=== PATIENT | female | born 1960 | race Caucasian/White ===

== ENCOUNTER → 2017-07-23 | Outpatient (CLI) | payer MEDICARE, OTHER ==
[2016-08-21 08:50] VITALS: BP 116/65
[~2017-07-23] MED LIST: ALPR0.5T6 PO; ATEN25TA PO; DIGO125T PO; DIPH25CA58 PO; DULO30CA2 PO; FENT1PAT17 TD; NITR100C62 PO; ONDA4TAB10 SL; OXYC1TAB7 PO; PROM12.56 PO; TIZA4TAB PO; ZOLP10TA4 PO
--- NOTE | 2017-07-23 13:30 | KCIC ---
EXAM: Dual energy x-ray absorptiometry (DEXA). HISTORY: Osteoporosis. COMPARISON: None available. TECHNIQUE: Dual energy x-ray absorptiometry of the lumbar spine and left hip was performed. Calculation of bone mineral density based on standard deviations above or below the expected young adult normal value (T-score) was completed. FINDINGS: The average bone mineral density in the 1st through 4th lumbar vertebrae is 0.841 g/cmxcm, corresponding with a T-score of -1.9. The average total bone mineral density in the left hip is 0.771 g/cmxcm, corresponding with a T-score of -1.4. IMPRESSION: Findings are compatible with osteopenia. Note: Definitions established by the World Health Organization: 1. Normal: T-score is -1.0 or above. 2. Osteopenia: T-score is between -1.0 and -2.5 . 3. Osteoporosis: T-score is -2.5 or below. Electronically signed by: Susan Padilla MD (07/23/2017 1:26 PM) [place] [id number]
--- NOTE | 2017-07-23 14:57 | KCIC ---
Bilateral digital screening mammograms: Reason for examination: Routine screening. Comparison is made to previous study dated 01/12/2014. The skin and nipples show no abnormalities. No abnormal axillary lymph nodes are seen. The breast parenchyma shows scattered fibroglandular density. (Breast density: Category B.) There are no dominant masses, suspicious calcifications or architectural distortions. Impression: No evidence of malignancy. Recommend routine screening. BI-RADS Category 1: Negative. "Our facility is accredited by the [employer] Mammography Program." This patient's information has been entered into a reminder system for the patient to be notified with the results of her examination and a target date for the next mammogram. Electronically signed by: Machelle Cook MD (07/23/2017 2:54 PM) [facility]
== END | disposition home or self-care (01) ==
LOC: KCIC MAMMO 12:30
PROVIDERS: ATTEND Physician Assistant Surgical
DX: Z12.31 Encounter for screening mammogram for malignant neoplasm of breast (principal); M81.0 Age-related osteoporosis without current pathological fracture; Z13.820 Encounter for screening for osteoporosis
CPT/HCPCS: 77080; G0202; 77067

== ENCOUNTER → 2018-08-05 | Outpatient (CLI) | payer MEDICARE ==
[2018-01-07 11:00] VITALS: BP 101/67
[~2018-08-05] MED LIST changes: +BACL10TA PO; +CETI10TA16 PO; +DIAZEPAM10 MG PO; +DIPH50CA PO; +FLUT16SP NS; +LACT20SO PO; +LEVO100T5 PO; +OMEP40CA5 PO; +OXYB5TAB7 PO; +OXYC-328 PO; +PROM25TA10 PO; +TRAZ-86 PO; +URSO500T8 PO; +VENL75CA PO
--- NOTE | 2018-08-06 14:00 | KCIC ---
3d digital tomography Bilateral History: Routine screening Technique: Bilateral 3d digital tomographic views were obtained with [employer] and reviewed on a [employer] workstation. In addition, CAD - computer aided detection was utilized. Comparison: July 23, 2017. Findings: Breast Tissue Density B : The breast tissue is composed of mixed fatty and fibroglandular tissue. There are no suspicious masses, microcalcifications or areas of architectural distortion. Impression: No suspicious findings. BI-RADS Category 1: Negative. Normal interval followup. The patient will receive a letter with the results in the mail. A mammogram does not have 100% sensitivity and therefore a negative imaging study should not delay further work up of a suspicious abnormality. Patient information is entered into the [facility] reminder system using [employer]) with a target due date for the next screening mammogram. The patient will receive a reminder. "Our facility is accredited by the [employer] Mammography Program." Electronically signed by: Moreno Ojeda III, MD (08/06/2018 1:57 PM) [facility]
== END | disposition home or self-care (01) ==
LOC: KCIC MAMMO 13:20
PROVIDERS: ATTEND Family Medicine
DX: Z12.31 Encounter for screening mammogram for malignant neoplasm of breast (principal)
CPT/HCPCS: 77063; 77067

== ENCOUNTER → 2018-08-30 | Outpatient (CLI) | payer MEDICARE ==
[2018-01-07 11:00] VITALS: BP 101/67
--- NOTE | 2018-08-30 13:46 | RAD ---
CT CHEST WO CONTRAST Indication: COUGH, X1WEEK, NO PRIORS Exposure: One or more of the following individualized dose reduction techniques were utilized for this examination: 1. Automated exposure control 2. Adjustment of the mA and/or kV according to patient size 3. Use of iterative reconstruction technique. Comparison: None are available. Contrast:. None FINDINGS: Vascular evaluation limited without intravenous contrast. No evidence of aortic aneurysm. Partially seen thyroid unremarkable. No significant lymph node enlargement. No pericardial effusion. Esophagus grossly unremarkable. No significant pleural effusion. There is some linear density in the left lingula, somewhat nodular on the axial images. This nodular aspect is fairly flat when viewed in the sagittal plane, measures 7 mm x 2 mm x 6 mm. There are several additional scattered small nodules in the lungs, measuring 2 mm or less. Mild groundglass density in the dependent aspect of the right lower lobe, likely atelectasis. No dense airspace consolidation. The trachea and central airways are patent. Degenerative spondylosis. Limited scans through the upper abdomen demonstrate a lesion arising from the upper pole the left kidney, measuring 10 mm, indeterminate. IMPRESSION: 1. Small flat nodule in the lingula of the left lung, measuring 7 mm long axis. Multiple additional tiny nodules measuring 2 mm or less. As per Fleischner guidelines, recommend follow-up CT chest in 6-12 months. 2. Mild hazy groundglass density in the right lower lobe, may just represent atelectasis. 3. Small indeterminate left renal nodule, may represent a cyst but further characterization could be obtained with ultrasound. Electronically signed by: Douglas Rincon MD (08/30/2018 1:43 PM) [facility]
== END | disposition home or self-care (01) ==
LOC: CT 14:03
PROVIDERS: ATTEND Internal Medicine Pulmonary Disease
DX: M47.894 Other spondylosis, thoracic region (principal); R91.1 Solitary pulmonary nodule
CPT/HCPCS: 71250

== ENCOUNTER → 2018-11-18 | Outpatient (CLI) | payer MEDICARE ==
[2018-01-07 11:00] VITALS: BP 101/67
[~2018-11-18] MED LIST changes: -OXYC-328 PO; +OXYC1TAB22 PO
[2018-11-18 16:15] LABS: BASO % 1 % (0-3); EOS # 0.1 x10^3/uL (0.0-0.7); EOS % 2 % (0-3); HEMATOCRIT 42.4 % (36.0-47.0); LYMPH # 2.1 x10^3/uL (1.0-4.8); LYMPH % 34 % (24-48); MEAN CORPUSCULAR HEMOGLOBIN 30 pg (25-35); MEAN CORPUSCULAR HGB CONC 33 g/dL (31-37); MEAN CORPUSCULAR VOLUME 90 fL (79-100); MONO # 0.4 x10^3/uL (0.0-1.1); MONO % 7 % (0-9); NEUT # 3.4 x10^3uL (1.8-7.7); NEUT % 56 % (31-73); PLATELET COUNT 186 x10^3/uL (140-400); RED BLOOD COUNT 4.71 x10^6/uL (3.50-5.40); RED CELL DISTRIBUTION WIDTH 14.1 % (11.5-14.5); WHITE BLOOD COUNT 6.1 x10^3/uL (4.0-11.0)
[2018-11-18 16:24] LABS: PROTHROMBIN TIME PATIENT 14.1 SEC (11.7-14.0)
[2018-11-18 16:48] LABS: ALBUMIN 3.8 g/dL (3.4-5.0); CALCIUM 9.7 mg/dL (8.5-10.1); GFR 56.9; POTASSIUM 4.5 mmol/L (3.5-5.1); TOTAL PROTEIN 7.6 g/dL (6.4-8.2)
== END | disposition home or self-care (01) ==
LOC: LAB 15:41
PROVIDERS: ATTEND Internal Medicine
DX: K74.69 Other cirrhosis of liver (principal)
CPT/HCPCS: 36415; 80053; 82105; 85025; 85610

== ENCOUNTER → 2019-07-01 | Outpatient (CLI) | payer MEDICARE ==
[2018-01-07 11:00] VITALS: BP 101/67
[~2019-07-01] MED LIST changes: -PROM12.56 PO; +PROM12.58 PO; -TIZA4TAB PO; +TIZA4TAB2 PO; -URSO500T8 PO; +URSO500T9 PO
--- NOTE | 2019-07-01 17:20 | RAD ---
EXAM: CT Chest without IV contrast CLINICAL HISTORY: Lung nodules, cough COMPARISON: 08/30/2018 TECHNIQUE: CT of the chest without intravenous contrast. Axial, coronal and sagittal reformatted images were generated. ---PQRS compliance statement - One or more of the following individualized dose reduction techniques were utilized for this study: 1. Automated exposure control 2. Adjustment of the mA and/or kV according to patient size 3. Use of iterative reconstruction technique--- FINDINGS: Lack of intravenous contrast limits evaluation of solid organs, vasculature, and lymph nodes. Chest: Pacer leads are seen within the heart. The heart is not enlarged. No pericardial effusion. No pleural effusion or pneumothorax. 7 mm nodular density in the lingula is essentially stable (series 8 image 148). A few 2-3 mm lung nodules bilaterally are essentially stable. Visualized Upper abdomen: Cholecystectomy clips are seen. Left upper pole renal cystic lesion is seen. Bones: Osseous structures are grossly unremarkable. IMPRESSION: 1. 7 mm nodular density in the lingula is essentially stable. Consider 12 month follow-up to ensure two-year stability. Additional smaller 2-3 mm lung nodules are also grossly stable. Electronically signed by: Damir Arcos MD (07/01/2019 5:18 PM) [facility] [place]
== END | disposition home or self-care (01) ==
LOC: CT 12:57
PROVIDERS: ATTEND Internal Medicine Pulmonary Disease
DX: R91.8 Other nonspecific abnormal finding of lung field (principal); N28.89 Other specified disorders of kidney and ureter; Z90.49 Acquired absence of other specified parts of digestive tract
CPT/HCPCS: 71250

== ENCOUNTER → 2019-09-02 | Outpatient (CLI) | payer MEDICARE ==
[2018-01-07 11:00] VITALS: BP 101/67
[~2019-09-02] MED LIST changes: -DIGO125T PO; +DIGO125T3 PO; +OMEP40CA45 PO; -OMEP40CA5 PO; +OXYB5TAB10 PO; -OXYB5TAB7 PO; +REGADENOSON 0.4 MG/5 ML DISP.SYRIN. IV ONE
--- NOTE | 2019-09-02 13:18 | RAD ---
MR#: [id number] Date of Study: 09/02/2019 Ordering Physician: RNONY BLOOM Referring Physician: CIERRA ISRAEL Tech: EDITA White APPROVED REPORT Test Type: Pharmacological Stress Nurse/Tech: Becca Breen R.N. Test Indications: pre-op back surgery Cardiac History: htn, pacemaker Medications: Zocor Medical History: See Electronic Medical Record Resting EC% a paced Resting Heart Rate: 81 bpm Resting Blood Pressure: 130/82mmHg Pretest Chest Pain: No chest pain Nurse/Tech Notes S1S2, lungs CTA Consent: The procedure was explained to the patient in lay terms. Informed consent was witnessed. Sai eout was entered into [email or web address]. History and Stress Test performed by RT Chris (R) (N) Pharm. Details Pharmacologic stress testing was performed using 0.4mg per 5ml of regadenoson given intravenously ove r 7-10 seconds. Stress Symptoms SOA POST EXERCISE Reason for Termination: Infusion complete Max HR: 88 bpm Max Blood Pressure: 149/68mmHg Blood Pressure response to exercise: Normal blood pressure response during stress. Heart Rate response to exercise: wnl Chest Pain: No. Arrhythmia: No. ST Change: No. INTERPRETATION Stress EKG Conclusion: Atrial paced rhythm at baseline. No significant EKG changes to suggest ischemi a with vasodilator infusion. Imaging Protocol IMAGE PROTOCOL: Rest Tc-99m/stress Tc-99m 1 day Rest: Stress: Viability: Radiopharm.Tc99m SwbfiaccgDp24k Sestamibi Dose10.3mCi 33mCi Duration 15min. 10min. Img Date 09/02/2019 09/02/2019 Inj-Img Mmwz66wea. 60min. Rest Admin Site:IV - Right WristAdministrator:RT Chris (R)(N) Stress Admin Site: IV - Right WristAdministrator: NORA Ayers, ARRT (R)(N) STRESS DATA End Diast. Vol.64.0mlAv. Heart Rate72.0bpm End Syst. Vol.12.0mlCO Index BSA0.0L/min Myocardial Wdbo585.0gEject. Auafxsqv27.0% Stress Rates Pk. Fill Rate3.54EDV/secLVtime Pk. Fill 225.85msec Pk. Empty Rate4.48ESV/secLVtime Pk. Vpqrw154.10msec /3 Pk. Fill1.57EDV/sec Stress Scores Regional WT1.00Summed WT1.00 Regional WM0.00Summed WM0.00 The rest and stress images show normal perfusion, normal contraction and thickening. LV Perf. Quant 17 Seg. SSS0.00 17 Seg. SRS0.00 17 Seg. SDS0.00 Stress Defect Extent (% LAD)0.00Rest Defect Extent (% LAD)0.00Rev. Defect Extent (% LAD)0.00 Stress Defect Extent (% LCX) 0.00Rest Defect Extent (% LCX)0.00Rev. Defect Extent (% LCX)0.00 Stress Defect Extent (% RCA)0.00Rest Defect Extent (% RCA)0.00Rev. Defect Extent (% RCA)0.00 Stress Defect Extent (% CÉSAR)0.00Rest Defect Extent (% CÉSAR)0.00Rev. Defect Extent (% CÉSAR)0.00 Other Information Quality:Good Risk Assessment: Low Risk Conclusion 1. No evidence of EKG changes with stress testing. 2. Normal perfusion at stress/rest. 3. Low risk study. 4. EF > 60%. Signed by : Jose Roberto De La O, Electronically Approved : 09/02/2019 13:17:58
== END | disposition home or self-care (01) ==
LOC: NM 09:39
PROVIDERS: ATTEND Internal Medicine Cardiovascular Disease
DX: Z01.818 Encounter for other preprocedural examination (principal); I49.5 Sick sinus syndrome; I10 Essential (primary) hypertension; Z95.0 Presence of cardiac pacemaker; Z87.891 Personal history of nicotine dependence
CPT/HCPCS: 78452; 93017; A9500; J2785

== ENCOUNTER → 2019-09-03 | Outpatient (CLI) | payer MEDICARE ==
[2018-01-07 11:00] VITALS: BP 101/67
[~2019-09-03] MED LIST changes: +DIGO125T PO; -DIGO125T3 PO; -REGADENOSON 0.4 MG/5 ML DISP.SYRIN. IV ONE
--- NOTE | 2019-09-03 13:17 | CARD ---
MR#: [id number] Date of Study: 09/03/2019 Ordering Physician: RONNY DUENAS, Referring Physician: Lalo ISRAEL: Zhanna Davenport APPROVED REPORT EXAM: Two-dimensional and M-mode echocardiogram with Doppler and color Doppler. Other Information Quality : AverageHR: 89bpm INDICATION Chest Pain 2D DIMENSIONS RVDd3.0 (2.9-3.5cm)Left Atrium(2D)2.7 (1.6-4.0cm) IVSd0.9 (0.7-1.1cm)Aortic Root(2D)2.7 (2.0-3.7cm) LVDd4.4 (3.9-5.9cm)LVOT Diameter2.0 (1.8-2.4cm) PWd0.7 (0.7-1.1cm)LVDs2.8 (2.5-4.0cm) FS (%) 37.0 %SV60.3 ml LVEF(%)67.1 (>50%) Aortic Valve AoV Peak Fernie.130.6cm/sAoV VTI29.7cm AO Peak GR.6.8mmHgLVOT Peak Fernie.105.1cm/s LVOT VTI 23.13cmAO Mean GR.4mmHg JUAN ALBERTO (VMAX)1.51qi8EKQ (VTI)2.38cm2 AI P 1/2 Rsea101me Mitral Valve MV E Vlbjcblp16.6cm/sMV DECEL [id number] MV A Eajcpwte37.1cm/sMV AKP34bz E/A Ratio0.8MVA (PHT)3.71cm2 TDI E/Lateral E'7.2E/Medial E'9.5 Pulmonary Valve PV Peak Itujemwn18.9cm/sPV Peak Grad.2mmHg Tricuspid Valve TR P. Uzlrxbpj930bs/sRAP AVOCRGBK9jsNg TR Peak Gr.83yxWzBQPG72ipXv Pulmonary Vein S1 Ptngyien09.6cm/sD2 Fuejxzvh61.6cm/s PVa qtmpusrh740xdez LEFT VENTRICLE The left ventricle is normal size. There is normal left ventricular wall thickness. The left ventricu lar systolic function is normal. The Ejection Fraction is 60-65%. There is normal LV segmental wall m otion. Transmitral Doppler flow pattern is Grade I-abnormal relaxation pattern. RIGHT VENTRICLE The right ventricle is normal size. The right ventricular systolic function is normal. ATRIA The left atrium size is normal. The right atrium size is normal. The interatrial septum is intact wit h no evidence for an atrial septal defect or patent foramen ovale as noted on 2-D or Doppler imaging. AORTIC VALVE The aortic valve is thickened but opens well. Doppler and Color Flow revealed mild aortic regurgitati on. There is no significant aortic valvular stenosis. MITRAL VALVE The mitral valve is mildly thickened. There is no evidence of mitral valve prolapse. There is no mitr al valve stenosis. Doppler and Color-flow revealed trace to mild mitral regurgitation. TRICUSPID VALVE The tricuspid valve is normal in structure and function. Doppler and Color Flow revealed mild tricusp id regurgitation with an estimated PAP of 19 mmHg. There is no tricuspid valve stenosis. PULMONIC VALVE The pulmonic valve is not well visualized. Doppler and Color Flow revealed trace to mild pulmonic louis vular regurgitation. GREAT VESSELS The aortic root is normal in size. The ascending aorta is normal in size. The IVC is normal in size a nd collapses >50% with inspiration. PERICARDIAL EFFUSION There is no pleural effusion. There is no evidence of significant pericardial effusion. Critical Notification Critical Value: No <Conclusion> The left ventricular systolic function is normal. The Ejection Fraction is 60-65%. There is normal LV segmental wall motion. Transmitral Doppler flow pattern is Grade I-abnormal relaxation pattern. Mild aortic regurgitation. Trace to mild mitral regurgitation. Mild tricuspid regurgitation with an estimated PAP of 19 mmHg. There is no evidence of significant pericardial effusion. Signed by : Ronny Duenas, Electronically Approved : 09/03/2019 13:16:48
== END | disposition home or self-care (01) ==
LOC: ECHO 12:32
PROVIDERS: ATTEND Internal Medicine Cardiovascular Disease
DX: I08.8 Other rheumatic multiple valve diseases (principal)
CPT/HCPCS: 93306

== ENCOUNTER → 2020-09-20 | Outpatient (CLI) | payer MEDICARE ==
[2018-01-07 11:00] VITALS: BP 101/67
[~2020-09-20] MED LIST changes: -DIGO125T PO; +DIGO125T3 PO; +TRAZ-123 PO; -TRAZ-86 PO
--- NOTE | 2020-09-20 16:12 | RAD ---
CT the chest compared to similar exam dated July 01, 2019 for lung nodule. TECHNIQUE AND FINDINGS: Contiguous axial CT images are obtained from the thoracic inlet to the base of diaphragm. Sagittal and coronal reformations are evaluated. No IV contrast was administered. FINDINGS: There is been a prior cholecystectomy. There is no suspicious mediastinal, hilar, or axillary lymphadenopathy. Pacemaker is noted. Heart size within normal limits. Evaluation of the upper abdominal organs is limited by lack of IV contrast, however no gross morphologic abnormalities are evident. There are no significant osseous abnormalities. The previously seen small 7 mm ovoid smoothly marginated nodule within a small accessory fissure in the lingula is redemonstrated and is almost certainly a benign intrafissural lymph node. A few other 2 to 4 mm benign granulomas are seen. No new or suspicious lung nodules or masses are evident. Central airways are patent. IMPRESSION: 1. Stable changes of antecedent granulomatous disease with no new or suspicious lung nodules. Previously seen small lingular nodule is almost certainly an intrafissural benign lymph node. PQRS Compliance Statement: One or more of the following individualized dose reduction techniques were utilized for this examination: 1. Automated exposure control 2. Adjustment of the mA and/or kV according to patient size 3. Use of iterative reconstruction technique Electronically signed by: King Matias MD (09/20/2020 4:09 PM) [id number]
== END ==
LOC: CT 12:51
PROVIDERS: ATTEND Internal Medicine Pulmonary Disease
DX: R91.1 Solitary pulmonary nodule (principal); Z90.49 Acquired absence of other specified parts of digestive tract
CPT/HCPCS: 71250

== ENCOUNTER → 2020-12-24 | Outpatient (CLI) | payer MEDICARE ==
[2018-01-07 11:00] VITALS: BP 101/67
--- NOTE | 2020-12-24 15:04 | CARD ---
MR#: [id number] Date of Study: 12/24/2020 Ordering Physician: RONNY BLOOM, Referring Physician: RONNY BLOOM Tech: Laly Urbano [facility] APPROVED REPORT EXAM: Two-dimensional and M-mode echocardiogram with Doppler and color Doppler. Other Information Quality : AverageHR: 76bpm Rhythm : NSR INDICATION Surgery/Intervention Pacemaker: RISK FACTORS Obesity 2D DIMENSIONS Left Atrium(2D)3.5 (1.6-4.0cm)IVSd1.1 (0.7-1.1cm) Aortic Root(2D)3.2 (2.0-3.7cm)LVDd4.6 (3.9-5.9cm) LVOT Diameter2.3 (1.8-2.4cm)PWd0.5 (0.7-1.1cm) IVSs1.3 (0.8-1.2cm)LVDs3.4 (2.5-4.0cm) FS (%) 26.4 %PWs0.6 (0.8-1.2cm) SV49.7 mlLVEF(%)51.8 (>50%) Aortic Valve AoV Peak Fernie.141.0cm/sAoV VTI23.5cm AO Peak GR.7.9mmHgAO Mean GR.4mmHg Mitral Valve MV E Ufodnukp31.7cm/sMV DECEL IAMJ870bi MV A Rqnzjdkz79.2cm/sMV YMD93aj E/A Ratio0.7MVA (PHT)3.18cm2 TDI E/Lateral E'7.8E/Medial E'8.1 Tricuspid Valve TR P. Zftfkynb760gk/sTR Peak Gr.17mmHg LEFT VENTRICLE The left ventricle is normal size. There is normal left ventricular wall thickness. The left ventricu lar systolic function is normal. Estimated ejection fraction 60-65%. There is normal LV segmental wa ll motion. Transmitral Doppler flow pattern is Grade I-abnormal relaxation pattern. RIGHT VENTRICLE The right ventricle is normal size. There is normal right ventricular wall thickness. The right ventr icular systolic function is normal. ATRIA The left atrium size is normal. The right atrium size is normal. The interatrial septum is intact wit h no evidence for an atrial septal defect or patent foramen ovale as noted on 2-D or Doppler imaging. AORTIC VALVE The aortic valve is normal in structure and function. Doppler and Color Flow revealed mild aortic reg urgitation. There is no significant aortic valvular stenosis. MITRAL VALVE The mitral valve is normal in structure and function. There is no evidence of mitral valve prolapse. There is no mitral valve stenosis. Doppler and Color Flow revealed no mitral valve regurgitation note d. TRICUSPID VALVE The tricuspid valve is normal in structure and function. Doppler and Color Flow revealed mild tricusp id regurgitation. Estimated PAP 20 mmHg. There is no tricuspid valve stenosis. PULMONIC VALVE The pulmonary valve is normal in structure and function. Doppler and Color Flow revealed no pulmonic valvular regurgitation. GREAT VESSELS The aortic root is normal in size. The ascending aorta is normal in size. The IVC is normal in size a nd collapses >50% with inspiration. PERICARDIAL EFFUSION There is no evidence of significant pericardial effusion. Critical Notification Critical Value: No <Conclusion> The left ventricular systolic function is normal. Estimated ejection fraction 60-65%. There is normal LV segmental wall motion. Transmitral Doppler flow pattern is Grade I-abnormal relaxation pattern. Mild aortic regurgitation. Mild tricuspid regurgitation. Estimated PAP 20 mmHg. There is no evidence of significant pericardial effusion. Signed by : Ronny Bloom, Electronically Approved : 12/24/2020 15:04:02
== END ==
LOC: ECHO 12:48
PROVIDERS: ATTEND Internal Medicine Cardiovascular Disease
DX: I08.2 Rheumatic disorders of both aortic and tricuspid valves (principal); I49.5 Sick sinus syndrome
CPT/HCPCS: 93306

== ENCOUNTER 2021-02-11 08:36 | Outpatient (CLI) | payer MEDICARE ==
[2021-02-11] VITALS (11 sets, daily range): BP systolic 95–141; BP diastolic 63–88
[~2021-02-11] VITALS: Ht 165.1 cm; Wt 83.9 kg
[2021-02-11] MEDS ORDERED: HYDR50CA2 PO (09:07)
[2021-02-11] MEDS ORDERED: TIZA4TAB2 PO (09:07)
[2021-02-11] MEDS ORDERED: ALEN70TA71 PO (09:07)
[2021-02-11] MEDS ORDERED: TRAZ-123 PO (09:07)
[2021-02-11] MEDS ORDERED: DICL100G24 TP (09:07)
[2021-02-11] MEDS ORDERED: LOSA-73 PO (09:09)
[2021-02-11] MEDS ORDERED: LIDOCAINE 1% PF 2 ML VIAL. ONE ×2 (09:33→10:59)
[2021-02-11 10:04] LABS: HEMATOCRIT 31.7 % (36.0-47.0); HEMOGLOBIN 10.2 g/dL (12.0-15.5); RED BLOOD COUNT 3.9 x10^6/uL (3.50-5.40); RED CELL DISTRIBUTION WIDTH 16.8 % (11.5-14.5); WHITE BLOOD COUNT 7.2 x10^3/uL (4.0-11.0)
[2021-02-11 10:21] LABS: CALCIUM 8.7 mg/dL (8.5-10.1); CREATININE 0.8 mg/dL (0.6-1.0); GFR 73.2; POTASSIUM 4.1 mmol/L (3.5-5.1)
[2021-02-11 10:38] LABS: PROTHROMBIN TIME PATIENT 12.8 SEC (11.7-14.0)
[2021-02-11] MEDS ORDERED: IOHEXOL 300 MG/ML 100ML VIAL. ONE (10:59)
[2021-02-11] MEDS ORDERED: MIDAZOLAM HCL/PF 2 MG/2 ML VIAL. ONE (11:14)
[2021-02-11] MEDS ORDERED: fentaNYL PF VIAL 100 MCG/2 ML VIAL ONE (11:14)
[2021-02-11] MEDS ORDERED: HEPARIN for IV BOLUS 10,000 UNIT/10 ML VIAL. ONE (11:14)
[2021-02-11] MEDS ORDERED: NITROGLYCERIN 200 MCG/2 ML SYRINGE FOR CATH/VASC LAB. ONE (11:15)
[2021-02-11] MEDS ORDERED: VERAPAMIL 5 MG/2 ML VIAL. ONE (11:15)
[2021-02-11] MEDS ORDERED: HEPARIN for IV BOLUS 10,000 UNIT/10 ML VIAL. IART ONE (11:45)
[2021-02-11] MEDS ORDERED: IV 1/2 NORMAL SALINE 1,000 ML IV SCH (11:45)
[2021-02-11] MEDS ORDERED: LIDOCAINE 1% PF 2 ML VIAL. INJ ONE (11:45)
[2021-02-11] MEDS ORDERED: NITROGLYCERIN 200 MCG/2 ML SYRINGE FOR CATH/VASC LAB. IART ONE (11:45)
[2021-02-11] MEDS ORDERED: IOHEXOL 300 MG/ML 100ML VIAL. IART ONE (11:45)
[2021-02-11] MEDS ORDERED: fentaNYL PF VIAL 100 MCG/2 ML VIAL IV ONE (11:45)
[2021-02-11] MEDS ORDERED: VERAPAMIL 5 MG/2 ML VIAL. IART ONE (11:45)
[2021-02-11] MEDS ORDERED: MIDAZOLAM HCL/PF 2 MG/2 ML VIAL. IV ONE (11:45)
--- NOTE | 2021-02-11 13:00 | CARD ---
MR#: [id number] Date of Study: 02/11/2021 Ordering Physician: RONNY DUENAS, Referring Physician: RONNY DUENAS, Tech: RT Lencho(R)() APPROVED REPORT Technologist: RT Lencho(R)() Nurse: Tomeka Escalante RN Procedure(s) performed: Left heart catheterization, selective coronary angiography and left ventricul ography via right transradial approach FLUORO TIME: 5.9 MIN DOSE: 38 gYCM2 CONTRAST: 91 ccs Moderate Sedation: 23 min INDICATION The indication(s) include : unstable angina . [facility] Clinical Frailty Scale [facility] Clinical Frailty Scale: Mildly Frail Heart Failure Heart Failure: Yes If Yes, Newly Diagnosed: No If Yes, HF Type: Diastolic If Yes, NYHA Class: Class II CASE TECHNIQUE IV conscious sedation was used throughout procedure with appropriate monitoring and was performed in the presence of a registered nurse who was an independent trained observer other than the physician p erforming the procedure. During this case, Fluoroscopy and low osmolar contrast were used for imaging . Specimen(s) Removed: No Estimated Blood loss: 15 cc's. PROCEDURE NARRATIVE After explaining the risks, benefits and alternative options, informed consent was obtained from colin ent. Patient was brought to the cardiac [employer] and right wrist was prepped and draped in the usual fashion after confirming a positive modified Alhaji's test. Arterial access was obtained in the rig t radial artery and a 6 Maldivian sheath was inserted. 6 Maldivian Paulino catheter was used to perform elena ective angiography of the left and right coronary arteries. 6 Maldivian pigtail catheter was used to pe rform left ventriculography. Patient tolerated the procedure well. Hemostasis was achieved using TR band. There were no immediate complications. The following findings were noted. FINDINGS 1. Hemodynamics: Left ventricular end-diastolic pressure of 26 mmHg. No pullback gradient across th e aortic valve. 2. Left ventriculography: Normal left ventricle systolic function with ejection fraction estimated at 65%. No significant mitral regurgitation seen. 3. Coronary angiography: a. The left main coronary artery arose from the left sinus of Valsalva, gave rise to the left anteri or descending and left circumflex arteries and did not show any significant stenosis. b. The left anterior descending artery did not show any significant stenosis. c. The left circumflex artery did not show any significant stenosis. d. The right coronary artery was a large and dominant vessel arising from the right sinus of Valsalv a that did not show any significant stenosis. Conclusion 1. No significant coronary artery disease 2. Normal left ventricular systolic function with ejection fraction estimated at 65% Signed by : Ronny Duenas, Electronically Approved : 02/11/2021 12:59:59
--- NOTE | 2021-02-11 14:20 | NUR ---
PIV removed. Dressing changed/TR band removed-- no bleeding at site. Arm board re-applied. No questions upon discharge. Instructions provided on sedation, radial site care. All belongings taken w/ patient at time of d/c. driving home. RN stressed importance of not using R arm and monitoring for bleeding. VS stable. No bleeding.
== END 2021-02-11 14:20 | disposition home or self-care (01) ==
LOC: CCL 08:36
PROVIDERS: ATTEND Internal Medicine Cardiovascular Disease
DX: I25.110 Atherosclerotic heart disease of native coronary artery with unstable angina pectoris (principal); I10 Essential (primary) hypertension; E78.00 Pure hypercholesterolemia, unspecified; G47.30 Sleep apnea, unspecified; K21.9 Gastro-esophageal reflux disease without esophagitis; M19.90 Unspecified osteoarthritis, unspecified site; M81.0 Age-related osteoporosis without current pathological fracture; F41.9 Anxiety disorder, unspecified; F32.9 Major depressive disorder, single episode, unspecified; Z85.828 Personal history of other malignant neoplasm of skin; Z90.49 Acquired absence of other specified parts of digestive tract; Z98.890 Other specified postprocedural states; Z87.891 Personal history of nicotine dependence; Z88.0 Allergy status to penicillin; Z88.1 Allergy status to other antibiotic agents; Z88.2 Allergy status to sulfonamides
CPT/HCPCS: 36415; 80048; 85027; 85610; 93458; 99152; 99153; C1769; C1892; J1644; J2250; J3010; J3490; Q9967